=== PATIENT | male | born 1995 | race Caucasian/White ===

== ENCOUNTER 2018-06-27 12:26 | Emergency (ER) | payer OTHER ==
[~2018-06-27] VITALS: Ht 175.3 cm; Wt 61.4 kg
[~2018-06-27 12:26] MED LIST: COUMADIN 2MG2 MG/TAB PO; COUMADIN 5MG5 MG/TAB PO; LOVENOX 8080 MG/0.8 SQ; NICODERM C21 MG/PATC TOP; PERCOCET 325 MG1 TAB PO; ZOFRAN 4MG T4 MG/TAB PO
[2018-06-27 12:38] VITALS: BP 138/68
[2018-06-27] MEDS ORDERED: FLEXERIL 1010 MG/TAB PO (14:03)
[2018-06-27 14:22] VITALS: PULSE 94; TEMP 97.5
== END 2018-06-27 14:23 | disposition home or self-care (01) ==
LOC: COL.ER 12:26
DX: S39.012A Strain of muscle, fascia and tendon of lower back, initial encounter (principal); F17.210 Nicotine dependence, cigarettes, uncomplicated; Z88.0 Allergy status to penicillin; X50.0XXA Overexertion from strenuous movement or load, initial encounter
CPT/HCPCS: J1885; J2360

== ENCOUNTER 2018-10-12 06:23 | Emergency (ER) | payer OTHER ==
[~2018-10-12] VITALS: Ht 172.7 cm; Wt 59.1 kg
[~2018-10-12 06:23] MED LIST changes: +FLEXERIL 1010 MG/TAB PO
[2018-10-12 06:26] VITALS: TEMP 98.3
[2018-10-12] MEDS ORDERED: ASPIRIN 32325 MG/TAB PO (06:40)
[2018-10-12 07:03] LABS: BASO % 0.5 % (0.0-2.0); EOS # 0.2 (0.0-0.7); EOS % 2.3 % (0-4.0); GRAN # 3.5 (1.4-6.5); GRAN % 46.8 % (42.2-75.2); HEMATOCRIT 43.9 % (42.0-52.0); HEMOGLOBIN 15.3 g/dl (13.5-18.0); LYMPH # 2.9 (1.2-3.4); LYMPH % 38.3 % (20.0-51.0); MEAN CELL VOLUME 90 fl (80.0-100.0); MEAN CORPUSCULAR HEMOGLOBIN 31 pg (27.0-31.0); MEAN CORPUSCULAR HGB CONC 35 g/dl (33.0-37.0); MEAN PLATELET VOLUME 9.3 fl (7.4-10.4); MONO # 0.9 (0.1-0.6); MONO % 11.7 % (1.7-9.3); PLATELET COUNT 203 K/mm3 (130-400); RED BLOOD COUNT 4.87 M/mm3 (4.20-5.60); REDCELL DISTRIBUTION WIDTH-CV 11.8 % (11.5-14.5)
[2018-10-12 07:12] LABS: ALANINE AMINOTRANSFERASE 36 U/L (21-72); ALBUMIN 4.4 gm/dL (3.5-5.0); ALKALINE PHOSPHATASE 77 U/L (50-136); ANION GAP 9 mmol/L (7-16); AST,SGOT 24 U/L (15-37); BILIRUBIN,TOTAL 0.2 mg/dL (0.0-1.0); BLOOD UREA NITROGEN 21 mg/dL (9-20); CALCIUM 9.1 mg/dL (8.4-10.2); CARBON DIOXIDE 28 mmol/L (22-30); CHLORIDE 102 mmol/L (98-107); CREATINE KINASE 96 U/L (55-170); CREATININE, serum 0.91 mg/dL (0.66-1.25); GLUCOSE 94 mg/dL (74-106); POTASSIUM 3.6 mmol/L (3.4-5.0); SODIUM 139 mmol/L (137-145); TOTAL PROTEIN 7.2 gm/dL (6.4-8.2)
[2018-10-12 07:25] LABS: TROPONIN-I < 0.012 ng/mL (0.000-0.034)
[2018-10-12 07:26] LABS: INR 1.1 (0.8-3.0); PROTHROMBIN TIME 12.9 SECONDS (9.7-12.8)
[2018-10-12 10:56] VITALS: BP 120/75; PULSE 88
== END 2018-10-12 10:50 | disposition home or self-care (01) ==
LOC: COL.ER 06:23
PROVIDERS: Emergency Medicine
DX: R25.2 Cramp and spasm (principal); R07.89 Other chest pain; Z79.82 Long term (current) use of aspirin
CPT/HCPCS: J1650; J7030; Q9967

== ENCOUNTER → 2018-10-13 | Outpatient (CLI) | payer OTHER ==
[~2018-10-13] MED LIST changes: +ASPIRIN 32325 MG/TAB PO
== END ==
LOC: COL.VAS 13:27
DX: R25.2 Cramp and spasm (principal)

== ENCOUNTER 2018-12-14 16:56 | Emergency (ER) | payer OTHER ==
[~2018-12-14] VITALS: Ht 172.7 cm; Wt 65.9 kg
[2018-12-14 16:58] VITALS: BP 136/73; PULSE 115; TEMP 98.6
== END 2018-12-14 19:37 | disposition home or self-care (01) ==
LOC: COL.ER 16:56
DX: S61.412A Laceration without foreign body of left hand, initial encounter (principal); J45.909 Unspecified asthma, uncomplicated; Z88.0 Allergy status to penicillin; Z88.5 Allergy status to narcotic agent; W26.0XXA Contact with knife, initial encounter; Y92.009 Unspecified place in unspecified non-institutional (private) residence as the place of occurrence of the external cause

== ENCOUNTER → 2018-12-24 | Emergency (ER) | payer OTHER | LOC: COL.ER 11:46 | DX: R69 Illness, unspecified (principal) ==

== ENCOUNTER 2019-02-07 03:18 | Emergency (ER) | payer OTHER ==
[~2019-02-07] VITALS: Ht 172.7 cm; Wt 63.6 kg
[2019-02-07 03:23] VITALS: TEMP 97.5
[2019-02-07 05:12] LABS: BASO % 0.3 % (0.0-2.0); EOS % 0.5 % (0-4.0); GRAN # 4.2 (1.4-6.5); GRAN % 63.9 % (42.2-75.2); HEMATOCRIT 42.8 % (42.0-52.0); HEMOGLOBIN 14.7 g/dl (13.5-18.0); LYMPH # 1.8 (1.2-3.4); MEAN CELL VOLUME 92 fl (80.0-100.0); MEAN CORPUSCULAR HEMOGLOBIN 32 pg (27.0-31.0); MEAN CORPUSCULAR HGB CONC 34 g/dl (33.0-37.0); MEAN PLATELET VOLUME 9.4 fl (7.4-10.4); MONO # 0.5 (0.1-0.6); PLATELET COUNT 205 K/mm3 (130-400); RED BLOOD COUNT 4.65 M/mm3 (4.20-5.60); REDCELL DISTRIBUTION WIDTH-CV 11.9 % (11.5-14.5)
[2019-02-07 05:20] LABS: ALANINE AMINOTRANSFERASE 18 U/L (21-72); ALBUMIN 4.3 gm/dL (3.5-5.0); ALKALINE PHOSPHATASE 74 U/L (50-136); ANION GAP 9 mmol/L (7-16); AST,SGOT 19 U/L (15-37); BILIRUBIN,TOTAL 0.3 mg/dL (0.0-1.0); BLOOD UREA NITROGEN 16 mg/dL (9-20); CALCIUM 9.2 mg/dL (8.4-10.2); CARBON DIOXIDE 25 mmol/L (22-30); CHLORIDE 108 mmol/L (98-107); CREATININE, serum 0.76 (0.66-1.25); GLUCOSE 132 mg/dL (74-106); POTASSIUM 3.6 mmol/L (3.4-5.0); SODIUM 143 mmol/L (137-145)
[2019-02-07 05:36] LABS: TROPONIN-I < 0.012 ng/mL (0.000-0.035)
[2019-02-07] MEDS ORDERED: FLEXERIL 1010 MG/TAB PO (06:40)
[2019-02-07 06:59] VITALS: BP 121/76; PULSE 88
== END 2019-02-07 07:02 | disposition home or self-care (01) ==
LOC: COL.ER 03:18
PROVIDERS: Emergency Medicine
DX: R07.9 Chest pain, unspecified (principal); R51 Headache; D68.59 Other primary thrombophilia; F17.210 Nicotine dependence, cigarettes, uncomplicated; Z98.52 Vasectomy status
CPT/HCPCS: J1885; J7030; Q9967

== ENCOUNTER 2020-01-20 10:36 | Emergency (ER) | payer BC ==
[~2020-01-20] VITALS: Ht 175.3 cm; Wt 63.6 kg
[2020-01-20 10:40] VITALS: TEMP 98.7
[2020-01-20] MEDS ORDERED: EXCEDRIN1 TAB PO (10:44)
[2020-01-20 11:37] VITALS: BP 110/77; PULSE 98
== END 2020-01-20 11:40 | disposition home or self-care (01) ==
LOC: COL.ER 10:36
DX: M25.511 Pain in right shoulder (principal); M25.311 Other instability, right shoulder

== ENCOUNTER 2020-08-17 06:59 | Emergency (ER) | payer BC ==
[~2020-08-17] VITALS: Ht 175.3 cm; Wt 60.0 kg
[~2020-08-17 06:59] MED LIST changes: +EXCEDRIN1 TAB PO
[2020-08-17 07:14] VITALS: TEMP 97.9
[2020-08-17 07:43] LABS: BASO % 0.6 % (0.0-2.0); EOS % 0.8 % (0-4.0); GRAN % 41.2 % (42.2-75.2); HEMATOCRIT 42.7 % (42.0-52.0); HEMOGLOBIN 14.8 g/dl (13.5-18.0); LYMPH # 2.2 (1.2-3.4); LYMPH % 44.4 % (20.0-51.0); MEAN CELL VOLUME 91 fl (80.0-100.0); MEAN CORPUSCULAR HEMOGLOBIN 31 pg (27.0-31.0); MEAN CORPUSCULAR HGB CONC 35 g/dl (33.0-37.0); MEAN PLATELET VOLUME 9.1 fl (7.4-10.4); MONO # 0.6 (0.1-0.6); MONO % 12.8 % (1.7-9.3); PLATELET COUNT 238 K/mm3 (130-400); RED BLOOD COUNT 4.71 M/mm3 (4.20-5.60); REDCELL DISTRIBUTION WIDTH-CV 12.4 % (11.5-14.5)
[2020-08-17 08:00] LABS: INR 1.1 (0.8-3.0); PROTHROMBIN TIME 12.6 SECONDS (9.7-12.8)
[2020-08-17 08:03] LABS: PARTIAL THROMBOPLASTIN TIME 31.5 SECONDS (26.0-37.0)
[2020-08-17 08:06] LABS: ALANINE AMINOTRANSFERASE 12 U/L (4-49); ALBUMIN 4.6 gm/dL (3.5-5.0); ALKALINE PHOSPHATASE 58 U/L (50-136); ANION GAP 9 mmol/L (7-16); AST,SGOT 22 U/L (15-37); BILIRUBIN,TOTAL 0.4 mg/dL (0.0-1.0); BLOOD UREA NITROGEN 14 mg/dL (9-20); CALCIUM 9.7 mg/dL (8.4-10.2); CARBON DIOXIDE 25 mmol/L (22-30); CHLORIDE 105 mmol/L (98-107); CREATININE, serum 0.81 (0.66-1.25); GLUCOSE 89 mg/dL (74-106); POTASSIUM 3.6 mmol/L (3.4-5.0); SODIUM 140 mmol/L (137-145); TOTAL PROTEIN 7.1 gm/dL (6.4-8.2)
[2020-08-17 08:22] LABS: TROPONIN-I < 0.012 ng/mL (0.000-0.035)
[2020-08-17] MEDS ORDERED: LEVAQUIN 750MG750 M1 PO (08:27)
[2020-08-17] MEDS ORDERED: PROMETHAZINE D118 ML (08:30)
[2020-08-17] MEDS ORDERED: ASPIRIN 81M81 MG/TA2 PO (08:31)
[2020-08-17 09:44] VITALS: BP 117/77; PULSE 99
== END 2020-08-17 09:47 | disposition home or self-care (01) ==
LOC: COL.ER 06:59
PROVIDERS: Emergency Medicine
DX: R05 Cough (principal); F45.8 Other somatoform disorders; F17.290 Nicotine dependence, other tobacco product, uncomplicated; Z20.828 Contact with and (suspected) exposure to other viral communicable diseases; Z88.0 Allergy status to penicillin; Z88.6 Allergy status to analgesic agent; Z79.82 Long term (current) use of aspirin
CPT/HCPCS: Q9967

== ENCOUNTER 2020-11-25 13:08 | Emergency (ER) | payer OTHER ==
[~2020-11-25] VITALS: Ht 175.3 cm; Wt 63.6 kg
[~2020-11-25 13:08] MED LIST changes: +ASPIRIN 81M81 MG/TA2 PO; +LEVAQUIN 750MG750 M1 PO; +PROMETHAZINE D118 ML
[2020-11-25 13:51] LABS: BASO % 0.5 % (0.0-2.0); EOS % 0.2 % (0-4.0); GRAN # 3.3 (1.4-6.5); GRAN % 57.6 % (42.2-75.2); HEMATOCRIT 43.8 % (42.0-52.0); HEMOGLOBIN 15.3 g/dl (13.5-18.0); LYMPH # 1.8 (1.2-3.4); LYMPH % 31.6 % (20.0-51.0); MEAN CELL VOLUME 93 fl (80.0-100.0); MEAN CORPUSCULAR HEMOGLOBIN 32 pg (27.0-31.0); MEAN CORPUSCULAR HGB CONC 35 g/dl (33.0-37.0); MEAN PLATELET VOLUME 9.1 fl (7.4-10.4); MONO # 0.6 (0.1-0.6); MONO % 9.8 % (1.7-9.3); PLATELET COUNT 243 K/mm3 (130-400); RED BLOOD COUNT 4.72 M/mm3 (4.20-5.60); REDCELL DISTRIBUTION WIDTH-CV 11.9 % (11.5-14.5)
[2020-11-25 14:04] LABS: ALANINE AMINOTRANSFERASE 16 U/L (4-49); ALBUMIN 4.8 gm/dL (3.5-5.0); ALKALINE PHOSPHATASE 69 U/L (50-136); ANION GAP 9 mmol/L (7-16); AST,SGOT 24 U/L (15-37); BILIRUBIN,TOTAL 0.6 mg/dL (0.0-1.0); BLOOD UREA NITROGEN 15 mg/dL (9-20); CALCIUM 9.7 mg/dL (8.4-10.2); CARBON DIOXIDE 27 mmol/L (22-30); CHLORIDE 102 mmol/L (98-107); CREATININE, serum 0.73 (0.66-1.25); GLUCOSE 100 mg/dL (74-106); LIPASE 51 U/L (23-300); POTASSIUM 3.4 mmol/L (3.4-5.0); SODIUM 138 mmol/L (137-145); TOTAL PROTEIN 7.7 gm/dL (6.4-8.2)
[2020-11-25 14:17] LABS: TROPONIN-I < 0.012 ng/mL (0.000-0.035)
[2020-11-25 15:17] VITALS: BP 124/61; PULSE 100; TEMP 97.8
== END 2020-11-25 15:11 | disposition home or self-care (01) ==
LOC: COL.ER 13:08
PROVIDERS: Emergency Medicine
DX: F41.9 Anxiety disorder, unspecified (principal); Z86.711 Personal history of pulmonary embolism; F17.200 Nicotine dependence, unspecified, uncomplicated; Z88.0 Allergy status to penicillin; Z88.6 Allergy status to analgesic agent; Z79.82 Long term (current) use of aspirin
CPT/HCPCS: J2060; J7030; Q9967

== ENCOUNTER 2020-11-27 11:36 | Emergency (ER) | payer OTHER ==
[~2020-11-27] VITALS: Ht 175.3 cm; Wt 63.6 kg
[2020-11-27 11:51] VITALS: TEMP 98.4
[2020-11-27 12:28] LABS: PROTHROMBIN TIME 11.6 SECONDS (9.7-12.8)
[2020-11-27 12:30] LABS: ALANINE AMINOTRANSFERASE 20 U/L (4-49); ALKALINE PHOSPHATASE 83 U/L (50-136); ANION GAP 11 mmol/L (7-16); AST,SGOT 28 U/L (15-37); BILIRUBIN,TOTAL 0.5 mg/dL (0.0-1.0); BLOOD UREA NITROGEN 14 mg/dL (9-20); CARBON DIOXIDE 25 mmol/L (22-30); CHLORIDE 103 mmol/L (98-107); CREATININE, serum 0.81 (0.66-1.25); GLUCOSE 93 mg/dL (74-106); LIPASE 38 U/L (23-300); POTASSIUM 3.6 mmol/L (3.4-5.0); SODIUM 139 mmol/L (137-145); TOTAL PROTEIN 8.1 gm/dL (6.4-8.2)
[2020-11-27 12:31] LABS: D-DIMER < 200.00 ng/mLDDu (200-230); PARTIAL THROMBOPLASTIN TIME 26.6 SECONDS (26.0-37.0)
[2020-11-27 12:37] LABS: BASO % 0.4 % (0.0-2.0); EOS % 0.1 % (0-4.0); GRAN # 5.9 (1.4-6.5); GRAN % 62.5 % (42.2-75.2); HEMATOCRIT 47.2 % (42.0-52.0); HEMOGLOBIN 16.9 g/dl (13.5-18.0); LYMPH # 2.7 (1.2-3.4); LYMPH % 28.6 % (20.0-51.0); MEAN CELL VOLUME 91 fl (80.0-100.0); MEAN CORPUSCULAR HEMOGLOBIN 33 pg (27.0-31.0); MEAN CORPUSCULAR HGB CONC 36 g/dl (33.0-37.0); MEAN PLATELET VOLUME 8.8 fl (7.4-10.4); MONO # 0.8 (0.1-0.6); PLATELET COUNT 305 K/mm3 (130-400); REDCELL DISTRIBUTION WIDTH-CV 12.1 % (11.5-14.5)
[2020-11-27 12:43] LABS: TROPONIN-I < 0.012 ng/mL (0.000-0.035)
[2020-11-27] MEDS ORDERED: MOTRIN 400400 MG/TAB PO (15:17)
[2020-11-27] MEDS ORDERED: ROBAXIN 50500 MG/TAB PO (15:17)
[2020-11-27 15:27] VITALS: BP 109/70; PULSE 102
== END 2020-11-27 15:27 | disposition home or self-care (01) ==
LOC: COL.ER 11:36
PROVIDERS: Emergency Medicine
DX: R51.9 Headache, unspecified (principal); R00.0 Tachycardia, unspecified; Z88.0 Allergy status to penicillin; Z88.6 Allergy status to analgesic agent; Z79.82 Long term (current) use of aspirin
CPT/HCPCS: J1885; J2060; J7030; Q9967

== ENCOUNTER 2021-01-27 12:33 | Emergency (ER) | payer OTHER ==
[~2021-01-27] VITALS: Ht 175.3 cm; Wt 62.7 kg
[~2021-01-27 12:33] MED LIST changes: +MOTRIN 400400 MG/TAB PO; +ROBAXIN 50500 MG/TAB PO
[2021-01-27 12:40] VITALS: TEMP 97.9
[2021-01-27] MEDS ORDERED: EFFEXOR 75M75 MG/TAB PO (12:46)
[2021-01-27 16:57] VITALS: BP 131/75; PULSE 83
[2021-01-27] MEDS ORDERED: NORCO 325 MG-51 TAB PO (17:19)
== END 2021-01-27 16:55 | disposition home or self-care (01) ==
LOC: COL.ER 12:33
DX: R07.89 Other chest pain (principal); R74.8 Abnormal levels of other serum enzymes; J45.909 Unspecified asthma, uncomplicated; Z87.891 Personal history of nicotine dependence; Z88.0 Allergy status to penicillin; Z88.6 Allergy status to analgesic agent; Z79.82 Long term (current) use of aspirin
CPT/HCPCS: J1885; J3010